=== PATIENT | female | born 1980 | race African-American/Black ===

== ENCOUNTER 2017-02-17 18:16 | Emergency (ER) | payer MEDICAID ==
--- NOTE | 2017-02-17 19:21 | ER Document Report ---
ED GI/ - General Chief Complaint: Vag Bleeding, +preg <12wks Stated Complaint: VAGINAL BLEEDING Time Seen by Provider: 02/17/17 19:10 Mode of Arrival: Ambulatory Information source: Patient Notes: Patient states that she is currently but unsure how far along she may be. Last menstrual period was December 04. Patient states she has had occasional spotting from time to time but noticed some brown bloody discharge today that was a small amount. Patient denies any pelvic pain or urinary symptoms. Patient [facility] but has not otherwise had any care or ultrasound to confirm the . TRAVEL OUTSIDE OF THE [place] IN LAST 30 DAYS: No - HPI Patient complains to provider of: Vaginal bleeding. No: Abdominal pain, Vaginal discharge Onset: This morning Timing/Duration: Waxing and waning Quality of pain: No pain Pain Level: Denies Vaginal bleeding (Compared to normal period): Spotting, Dark brown Associated symptoms: denies: Diarrhea, Dysuria, Fever, Nausea, Urinary hesitancy , Urinary frequency, Urinary retention, Urinary urgency, Vomiting Exacerbated by: Denies Relieved by: Denies Similar symptoms previously: No Recently seen / treated by doctor: Yes - Related Data Allergies/Adverse Reactions: No Known Allergies Allergy (Verified 02/17/17 18:40) Past Medical History - General Information source: Patient Last Menstrual Period: 12/04/2016 - Social History Smoking Status: Never Smoker Frequency of alcohol use: None Drug Abuse: None Occupation: retail Family History: Reviewed & Not Pertinent Patient has suicidal ideation: No Patient has homicidal ideation: No - Medical History Medical History: Negative Renal/ Medical History: Denies: Hx Peritoneal Dialysis Surgical Hx: Negative - Immunizations Hx Diphtheria, Pertussis, Tetanus Vaccination: Yes Review of Systems - Review of Systems Constitutional: No symptoms reported. denies: Fever, Recent illness EENT: No symptoms reported Cardiovascular: No symptoms reported. denies: Chest pain Respiratory: No symptoms reported. denies: Cough, Short of breath Gastrointestinal: No symptoms reported. denies: Abdominal pain, Nausea, Vomiting Genitourinary: No symptoms reported. denies: Dysuria, Frequency Female Genitourinary: , Vaginal bleeding. denies: Vaginal discharge Musculoskeletal: No symptoms reported. denies: Back pain Skin: No symptoms reported Hematologic/Lymphatic: No symptoms reported Neurological/Psychological: No symptoms reported Physical Exam - Vital signs Vitals: Temp Pulse Resp BP Pulse Ox 98.1 F 82 22 H 134/80 H 100 02/17/17 18:40 02/17/17 18:40 02/17/17 18:40 02/17/17 18:40 02/17/17 18:40 - General General appearance: Appears well, Alert In distress: None - HEENT Head: Normocephalic, Atraumatic Eyes: Normal Nasal: Normal Mouth/Lips: Normal Mucous membranes: Normal Neck: Normal, Supple. No: Lymphadenopathy - Respiratory Respiratory status: No respiratory distress Chest status: Nontender Breath sounds: Normal. No: Rales, Rhonchi, Stridor, Wheezing Chest palpation: Normal - Cardiovascular Rhythm: Regular Heart sounds: S1 appreciated, S2 appreciated Murmur: No - Abdominal Inspection: Gravid female Distension: No distension Bowel sounds: Normal Tenderness: Nontender Organomegaly: No organomegaly - Back Back: Normal, Nontender. No: CVA tenderness - Extremities General upper extremity: Normal inspection, Normal strength General lower extremity: Normal inspection, Normal strength - Neurological Neuro grossly intact: Yes Cognition: Normal [place] Coma Scale Eye Opening: Spontaneous [place] Coma Scale Verbal: Oriented [place] Coma Scale Motor: Obeys Commands Kayla Coma Scale Total: 15 - Psychological Associated symptoms: Normal affect, Normal mood - Skin Skin Temperature: Warm Skin Moisture: Dry Skin Color: Normal Course - Vital Signs Vital signs: Temp Pulse Resp BP Pulse Ox 98.5 F 78 16 114/78 98 02/17/17 22:47 02/17/17 22:47 02/17/17 22:47 02/17/17 22:47 02/17/17 22:47 - Laboratory Result Diagrams: 02/17/17 20:30 Laboratory results interpreted by me: 02/17/17 02/17/17 20:30 20:30 RDW 16.0 H Beta HCG, Quant 381676.00 H Labs- Entire Visit 02/17/17 02/17/17 02/17/17 20:30 20:30 20:30 WBC 7.4 RBC 5.13 Hgb 14.0 Hct 43.1 MCV 84 MCH 27.2 MCHC 32.4 RDW 16.0 H Plt Count 196 Seg Neutrophils % 68.4 Lymphocytes % 22.3 Monocytes % 7.3 Eosinophils % 1.4 Basophils % 0.6 Absolute Neutrophils 5.0 Absolute Lymphocytes 1.6 Absolute Monocytes 0.5 Absolute Eosinophils 0.1 Absolute Basophils 0.0 Beta HCG, Quant 113268.00 H Total Beta HCG POSITIVE Urine Color Urine Appearance Urine pH Ur Specific [place] Urine Protein Urine Glucose (UA) Urine Ketones Urine Blood Urine Nitrite Urine Bilirubin Urine Urobilinogen Ur Leukocyte Esterase Urine WBC (Auto) Squamous Epi Cells Auto Urine Ascorbic Acid Epi Cells (Wet Prep) Bacteria (Wet Prep) Trichomonas (Wet Prep) Vaginal WBC Vaginal RBC Vaginal Yeast Blood Type A POSITIVE Rhogam Indicated RHOGAM NOT INDICATED 02/17/17 02/17/17 20:35 21:30 WBC RBC Hgb Hct MCV MCH MCHC RDW Plt Count Seg Neutrophils % Lymphocytes % Monocytes % Eosinophils % Basophils % Absolute Neutrophils Absolute Lymphocytes Absolute Monocytes Absolute Eosinophils Absolute Basophils Beta HCG, Quant Total Beta HCG Urine Color STRAW Urine Appearance CLEAR Urine pH 6.0 Ur Specific [place] 1.004 Urine Protein NEGATIVE Urine Glucose (UA) NEGATIVE Urine Ketones NEGATIVE Urine Blood NEGATIVE Urine Nitrite NEGATIVE Urine Bilirubin NEGATIVE Urine Urobilinogen NEGATIVE Ur Leukocyte Esterase NEGATIVE Urine WBC (Auto) 0 Squamous Epi Cells Auto <1 Urine Ascorbic Acid NEGATIVE Epi Cells (Wet Prep) 3+ EPITHELIALS SEEN Bacteria (Wet Prep) 3+ BACTERIA SEEN Trichomonas (Wet Prep) NO TRICHOMONAS SEEN Vaginal WBC FEW WBCS SEEN Vaginal RBC 1+ RBCS SEEN Vaginal Yeast NO YEAST SEEN Blood Type Rhogam Indicated 02/18/17 07:38 - Diagnostic Test Radiology reviewed: Reports reviewed Discharge - Discharge Clinical Impression: Vaginal spotting, Intrauterine , Bacterial vaginosis Condition: Stable Disposition: HOME, SELF-CARE Instructions: Bleeding During Early ([facility]), Vaginosis, Bacterial ([facility]) Additional Instructions: Return immediately for any new or worsening symptoms Followup with your primary care provider, call tomorrow to make a followup appointment Follow-up with your DIRECTOR OF ENVIRONMENTAL SERVICES provider for recheck. Pelvic rest until you are cleared by your plant accountant Prescriptions: Metronidazole [Flagyl 500 mg Tablet] 500 mg PO BID #14 tablet Referrals: TILA QUEEN MD [Primary Care Provider] - Follow up as needed [facility] [NO LOCAL MD] - Follow up tomorrow
[2017-02-17 20:38] LABS: ABSOLUTE EOSINOPHILS # (AUTO) 0.1 10^3/uL (0.0-0.6); ABSOLUTE LYMPHOCYTES (AUTO) 1.6 10^3/uL (0.5-4.7); ABSOLUTE MONOCYTES (AUTO) 0.5 10^3/uL (0.1-1.4); BASOPHILS % (AUTO) 0.6 % (0-2); EOSINOPHILS % (AUTO) 1.4 % (0-6); HEMATOCRIT 43.1 % (36.0-47.0); HGB HCT DIFFERENCE -1.1; LYMPHOCYTES % (AUTO) 22.3 % (13-45); MEAN CORPUSCULAR HEMOGLOBIN 27.2 pg (27.0-33.4); MEAN CORPUSCULAR HGB CONC 32.4 g/dL (32.0-36.0); MEAN CORPUSCULAR VOLUME 84 fl (80-97); MONOCYTES % (AUTO) 7.3 % (3-13); RED BLOOD COUNT 5.13 10^6/uL (3.72-5.28); SEGMENTED NEUTROPHILS % (AUTO) 68.4 % (42-78); WHITE BLOOD COUNT 7.4 10^3/uL (4.0-10.5)
[2017-02-17 20:50] LABS: APPEARANCE,URINE CLEAR; BILIRUBIN,URINE NEGATIVE (NEGATIVE); GLUCOSE, URINE NEGATIVE (NEGATIVE); KETONES,URINE NEGATIVE (NEGATIVE); LEUKOCYTE ESTERASE,URINE NEGATIVE (NEGATIVE); NITRITE,URINE NEGATIVE (NEGATIVE); PROTEIN,URINE NEGATIVE (NEGATIVE); URINE SPECIFIC GRAVITY 1.004; UROBILINOGEN,URINE NEGATIVE mg/dL (<2.0)
--- NOTE | 2017-02-17 21:21 | RADIOLOGY REPORT (SQ) ---
EXAM DESCRIPTION: U/S [id number] TRNABD 1GES W/ODOP COMPLETED DATE/TIME: 02/17/2017 9:04 pm REASON FOR STUDY: vag bleeding COMPARISON: None. TECHNIQUE: Transabdominal static and realtime grayscale images acquired of the pelvis. Additional se lected spectral and color Doppler images recorded. All images stored on PACs. bHCG: Pending. LIMITATIONS: None. FINDINGS: FETUS: Living intrauterine . EGA: 11 weeks, 4 days JEROME: 09/04/2017 FHR: 165 beats per minute. SUBCHORIONIC BLEED: No SIZE OF BLEED: Not applicable. UTERUS: No masses. No anomalies. CERVICAL LENGTH: 4.4 cm Closed. RIGHT ADNEXA: Ovary not identified. No adnexal free fluid. No adnexal masses. LEFT ADNEXA: Ovary not identified. No adnexal free fluid. No adnexal masses. FREE FLUID: None. OTHER: No other significant finding. IMPRESSION: LIVING INTRAUTERINE . EGA 11 weeks, 4 days Trimester of : First - 0 to 13 weeks. TECHNICAL DOCUMENTATION: JOB ID: [id number]- All Rights Reserved
[2017-02-17] MEDS ORDERED: METRONIDAZOLE 500 MG TABLET PO ONE (22:34)
[2017-02-17 23:10] LABS: CHLAM PCR NOT DETECTED (NOT DETECT)
[2017-02-17 23:23] VITALS: BP 114/78
== END 2017-02-17 23:10 | disposition home or self-care (01) ==
LOC: ER 18:16
DX: O26.851 Spotting complicating pregnancy, first trimester (principal); O23.591 Infection of other part of genital tract in pregnancy, first trimester; B96.89 Other specified bacterial agents as the cause of diseases classified elsewhere; Z3A.10 10 weeks gestation of pregnancy
CPT/HCPCS: 99284; 86900; 86901; 36415; 87210; 84702; 85025; 81001; 87491; 87591; 76801; J3490

== ENCOUNTER 2017-05-06 13:17 | Outpatient (CLI) | payer MEDICAID ==
[2017-05-06 14:28] LABS: APPEARANCE,URINE SLIGHTLY-CLOUDY; BILIRUBIN,URINE NEGATIVE (NEGATIVE); GLUCOSE, URINE NEGATIVE (NEGATIVE); KETONES,URINE NEGATIVE (NEGATIVE); LEUKOCYTE ESTERASE,URINE NEGATIVE (NEGATIVE); NITRITE,URINE NEGATIVE (NEGATIVE); PROTEIN,URINE NEGATIVE (NEGATIVE); URINE SPECIFIC GRAVITY 1.018; UROBILINOGEN,URINE NEGATIVE mg/dL (<2.0)
[2017-05-06 14:45] LABS: URINE BARBITURATES SCREEN NEGATIVE; URINE METHADONE SCREEN NEGATIVE; URINE OPIATES LOW NEGATIVE; URINE PHENCYCLIDINE SCREEN NEGATIVE
== END 2017-05-06 14:19 | disposition home or self-care (01) ==
LOC: LC 13:17
PROVIDERS: ATTEND Obstetrics & Gynecology
PROC: 4A1HXCZ Monitoring of Products of Conception, Cardiac Rate, External Approach (ICD-10-PCS; principal; 2017-05-06)
DX: O36.8120 Decreased fetal movements, second trimester, not applicable or unspecified (principal); O09.522 Supervision of elderly multigravida, second trimester; Z3A.21 21 weeks gestation of pregnancy
CPT/HCPCS: 80307; 81001

== ENCOUNTER 2017-08-27 11:32 | Outpatient (CLI) | payer MEDICAID | END 2017-08-27 12:34 | disposition home or self-care (01) | LOC: LC 11:32 | PROVIDERS: ATTEND Obstetrics & Gynecology | PROC: 4A1HXCZ Monitoring of Products of Conception, Cardiac Rate, External Approach (ICD-10-PCS; principal; 2017-08-27) | DX: O47.1 False labor at or after 37 completed weeks of gestation (principal); Z3A.38 38 weeks gestation of pregnancy | CPT/HCPCS: 59025 ==

== ENCOUNTER 2017-09-05 19:31 | Outpatient (CLI) | payer MEDICAID ==
--- NOTE | 2017-09-05 19:38 | Non Stress Test Report ---
Non Stress Test Datetime Report Generated by CPN: 09/05/2017 19:38 DEMOGRAPHIC EGA NST: 38.0 INDICATION Indication for Study: Ordered by Provider VITAL SIGNS Temperature - NST: 97.8 Pulse - NST: 82 RESP - NST: 18 NBPSYS NST: 107 NBPDIA NST: 57 MONITORING Monitor Explained: Monitor Explained; Test Explained; Patient Verbalized Understanding Time on Monitor: 08/27/2017 11:35 Time off Monitor: 08/27/2017 12:32 NST Duration: 57 NST INTERVENTIONS NST Interventions: PO Hydration; Reposition Patient; Vibroacoustic Stim Physician Notified NST: Dr Lee BABY A: [id number] BABY A Movement : Present Contraction Frequency : none FHR Baseline : 135 Accelerations : 15X15 Decelerations : None Variability : Moderate 6-25bpm NST Review: Meets Criteria for Reactive NST NST Review and Verified By : Jo Anand RNC NST Results: Reactive NST REPORT Report Trigger: Send Report
[2017-09-05 20:04] LABS: APPEARANCE,URINE CLEAR; BILIRUBIN,URINE NEGATIVE (NEGATIVE); COLOR,URINE STRAW; GLUCOSE, URINE NEGATIVE (NEGATIVE); KETONES,URINE NEGATIVE (NEGATIVE); LEUKOCYTE ESTERASE,URINE NEGATIVE (NEGATIVE); NITRITE,URINE NEGATIVE (NEGATIVE); PROTEIN,URINE NEGATIVE (NEGATIVE); URINE SPECIFIC GRAVITY 1.004; UROBILINOGEN,URINE NEGATIVE mg/dL (<2.0)
[2017-09-05 20:26] LABS: URINE AMPHETAMINES SCREEN NEGATIVE; URINE BARBITURATES SCREEN NEGATIVE; URINE BENZODIAZEPINES SCREEN NEGATIVE; URINE COCAINE SCREEN NEGATIVE; URINE MARIJUANA (THC) SCREEN NEGATIVE; URINE METHADONE SCREEN NEGATIVE; URINE PHENCYCLIDINE SCREEN NEGATIVE
--- NOTE | 2017-09-05 21:28 | Non Stress Test Report ---
Non Stress Test Datetime Report Generated by CPN: 09/05/2017 21:28 DEMOGRAPHIC EGA NST: 39.2 INDICATION Indication for Study: Ordered by Provider; Other Indication for Study (NST) Other: Contractions MONITORING Monitor Explained: Monitor Explained; Test Explained; Patient Verbalized Understanding Time on Monitor: 09/05/2017 19:51 Time off Monitor: 09/05/2017 21:05 NST Duration: 74 NST INTERVENTIONS NST Interventions: PO Hydration; Reposition Patient Physician Notified NST: Dr. Werner BABY A Movement : Present Contraction Frequency : 2-5 FHR Baseline : 135 Accelerations : 15X15 Decelerations : None Variability : Moderate 6-25bpm NST Review: Meets Criteria for Reactive NST NST Review and Verified By : Jo ModiLeyda RN NST REPORT Report Trigger: Send Report
== END 2017-09-05 21:18 | disposition home or self-care (01) ==
LOC: LC 19:31
PROVIDERS: ATTEND Obstetrics & Gynecology Gynecology
PROC: 4A1HXCZ Monitoring of Products of Conception, Cardiac Rate, External Approach (ICD-10-PCS; principal; 2017-09-05)
DX: O47.1 False labor at or after 37 completed weeks of gestation (principal); Z3A.39 39 weeks gestation of pregnancy
CPT/HCPCS: 80307; 81005

== ENCOUNTER 2017-09-13 18:30 | Inpatient (IN) | payer MEDICAID ==
[2017-09-13] MEDS ORDERED: RINGERS SOLUTION,LACTATED 1,000 ML IV PRN (18:36)
[2017-09-13] MEDS ORDERED: RINGERS SOLUTION,LACTATED 300 ML IV ONE (18:36)
[2017-09-13] MEDS ORDERED: DINOPROSTONE 10 MG VAGINAL INSERT.SR PV PRN (18:36)
[2017-09-13 19:14] LABS: APPEARANCE,URINE SLIGHTLY-CLOUDY; BILIRUBIN,URINE NEGATIVE (NEGATIVE); COLOR,URINE YELLOW; GLUCOSE, URINE NEGATIVE (NEGATIVE); KETONES,URINE NEGATIVE (NEGATIVE); LEUKOCYTE ESTERASE,URINE NEGATIVE (NEGATIVE); NITRITE,URINE NEGATIVE (NEGATIVE); PROTEIN,URINE NEGATIVE (NEGATIVE); URINE SPECIFIC GRAVITY 1.017; UROBILINOGEN,URINE NEGATIVE mg/dL (<2.0)
[2017-09-13 19:34] LABS: ABSOLUTE EOSINOPHILS # (AUTO) 0.1 10^3/uL (0.0-0.6); ABSOLUTE LYMPHOCYTES (AUTO) 1.6 10^3/uL (0.5-4.7); ABSOLUTE MONOCYTES (AUTO) 0.6 10^3/uL (0.1-1.4); ABSOLUTE NEUT (AUTO) 4.4 10^3/uL (1.7-8.2); BASOPHILS % (AUTO) 0.5 % (0-2); EOSINOPHILS % (AUTO) 1.2 % (0-6); HEMATOCRIT 40.5 % (36.0-47.0); HEMOGLOBIN 13.7 g/dL (12.0-15.5); LYMPHOCYTES % (AUTO) 23.5 % (13-45); MEAN CORPUSCULAR HGB CONC 33.7 g/dL (32.0-36.0); MEAN CORPUSCULAR VOLUME 86 fl (80-97); MONOCYTES % (AUTO) 8.9 % (3-13); PLATELET COUNT 167 10^3/uL (150-450); RED BLOOD COUNT 4.71 10^6/uL (3.72-5.28); RED CELL DISTRIBUTION WIDTH 15.7 % (11.5-14.0); SEGMENTED NEUTROPHILS % (AUTO) 65.9 % (42-78); TOTAL CELLS COUNTED % (AUTO) 100 %; WHITE BLOOD COUNT 6.7 10^3/uL (4.0-10.5)
[2017-09-13 19:48] LABS: URINE AMPHETAMINES SCREEN NEGATIVE; URINE BARBITURATES SCREEN NEGATIVE; URINE BENZODIAZEPINES SCREEN NEGATIVE; URINE COCAINE SCREEN NEGATIVE; URINE MARIJUANA (THC) SCREEN NEGATIVE; URINE METHADONE SCREEN NEGATIVE; URINE PHENCYCLIDINE SCREEN NEGATIVE
[2017-09-13] MEDS ORDERED: DINOPROSTONE 10 MG VAGINAL INSERT.SR ONE (21:06)
[2017-09-14] MEDS ORDERED: PENICILLIN G POTASSIUM 5,000,000 UNIT in DEXTROSE 5%-WATER 100 ML IV ONE (08:00)
[2017-09-14] MEDS ORDERED: PROMETHAZINE HCL INJ 25 MG/1 ML VIAL ONE (10:45)
[2017-09-14] MEDS ORDERED: NALBUPHINE HCL INJ 10 MG/1 ML AMPULE ONE (10:45)
[2017-09-14] MEDS ORDERED: OXYTOCIN/NORMAL SALINE 20 UNIT/1,000 ML RTUINJ ONE (10:46)
[2017-09-14] MEDS ORDERED: PENICILLIN G-K 5 MILLION UNIT VIAL ONE (11:10)
[2017-09-14] MEDS ORDERED: PENICILLIN G POTASSIUM 2,500,000 UNIT in DEXTROSE 5%-WATER 50 ML IV SCH (12:00)
[2017-09-14] MEDS ORDERED: LIDOCAINE 1% INJ-PF (10 MG/ML) 30 ML SDV ONE (12:09)
[2017-09-14] MEDS ORDERED: MISOPROSTOL 0.2 MG TABLET ONE (12:09)
--- NOTE | 2017-09-14 14:39 | Warning Signs in Babies ---
VOD Warning Signs Datetime Report Generated by [facility]: 09/14/2017 14:39 VOD#608 -Warning Signs in Babies: Viewed with Parent(s)/Family (05/06/2017 13:26:Milena Ayala RN)
--- NOTE | 2017-09-14 14:39 | Delivery Summary ---
Del Sum A-C Datetime Report Generated by CPN: 09/14/2017 14:39 DELIVERY PERSONNEL DELIVERY PERSONNEL: [id number] Delivery Doctor:: Mell Robbins MD Nurse Template Reproduction Technician Certified:: Whitley Dean CNM Labor and Delivery Nurse:: Milena Ayala RNship boss Nurse:: LAWRENCE [place] Account Executive/CELL BUILDER: Angelo Silveira CST Territory Account Executive/CELL BUILDER: Ann Triplett CNA II Additional Personnel: : Rut Jane RN MATERNAL INFORMATION Delivery Anesthesia: None Medications After Delivery: Pitocin Bolus-Please Comment; Other-Please Comment Meds After Delivery Comment: Pitocin 20 units in 1000 ml nss open for bolus, Cytotec 1000 mcg placed rectally per provider for prophylactic pp hemorrhage prevention Estimated Blood Loss (ml): 400 Maternal Complications: Precipitous Labor (<3hrs) Provider Comments: SVDVF, infant vigorous to mothers abd. Cord clamped x 2 cut per FOB, 3vc. Placenta partially and bleeding, manually removed with trailing membranes. Uterus firmed immediately and then began to bleed again after finishing sutures. Manual exploration done, removed some clots and possibly more membranes. EBL 400, Apgars 8,9 1*perineal, 1* rt labial, 1* periclitoral Mother and stable LABOR SUMMARY EDC: 09/10/2017 00:00 No. Babies in Womb: 1 Attempted: No Labor Anesthesia: IV Sedation LABOR INFORMATION Reason for Induction: Other Reason for Induction- Other: elective Onset of Labor: 09/14/2017 10:55 Complete Dilatation: 09/14/2017 12:00 Cervical Ripening Agents: Cervidil Oxytocin: Induction Group B Beta Strep: Positive Antibiotics # of Doses: 1 Antibiotics Time of Last Dose: 1115 Name of Antibiotic Given: Penicillin Steroids Given: None Reason Steroids Not Administered: Not Applicable Other Reason Not Administered: n/a MEMBRANES Membranes Rupture Method: Spontaneous Rupture of Membranes: 09/14/2017 11:55 Length of Rupture (hr): 0.37 Amniotic Fluid Color: Clear Amniotic Fluid Amount: Moderate Amniotic Fluid Odor: Normal STAGES OF LABOR Stage 1 hr: 1 Stage 1 min: 5 Stage 2 hr: 0 Stage 2 min: 17 Stage 3 hr: 0 Stage 3 min: 11 Total Time in Labor hr: 1 Total Time in Labor min: 33 VAGINAL DELIVERY Episiotomy: None Laceration #1: Perineal Laceration Extension #1: First Degree Other Laceration: right labial and 1st degree perineal Laceration Repair: Yes Laceration Repair Note: 1 interrupted stitch perineal rt labial 2 stitches 3.0 chromic sutures Sponge Count Correct: N/A Sharps Count Correct: N/A CSECTION DELIVERY Primary Indication: N/A Secondary Indication: N/A CSection Incidence: N/A Labor: N/A Elective: N/A CSection Incision: N/A BABY A INFORMATION Delivery Date/Time: 09/14/2017 12:17 Method of Delivery: Vaginal Born in Route : No : N/A Forceps: N/A Vacuum Extraction: N/A Shoulder Dystocia : Yes PRESENTATION/POSITION BABY A Presentation: Cephalic Cephalic Presentation: Vertex Vertex Position: Right Occipital Anterior Breech Presentation: N/A PLACENTA INFORMATION BABY A Placenta Delivery Time : 09/14/2017 12:28 Placenta Method of Delivery: Spontaneous Placenta Status: Delivered SCORES BABY A Heart Rate 1 min: >100 bpm Resp Effort 1 min: Good Cry Reflex Irritability 1 min: Cough or Sneeze or Pulls Away Muscle Tone 1 min: Active Motion Color 1 min: Body [place], Extremities Blue Resuscitation Effort 1 min: Tactile Stimulation SCORE 1 MIN: 9 Heart Rate 5 min: >100 bpm Resp Effort 5 min: Good Cry Reflex Irritability 5 min: Cough or Sneeze or Pulls Away Muscle Tone 5 min: Active Motion Color 5 min: Body [place], Extremities Blue Resuscitation Effort 5 min: N/A SCORE 5 MIN: 9 Resuscitation Effort 10 min: N/A INFANT INFORMATION BABY A Gestational Age at Delivery: 40.4 Gestational Status: Full Term- 39- 40.6 Weeks Outcome : Liveborn Infant Condition : Stable Infant Sex: Female IDENTIFICATION BABY A Infant Verification Date/Time: 09/14/2017 12:17 ID Band Number: [id number] Mother's Name Verified: Yes RN Verifying : Jayna Camp RNC Additional Verifying Personnel: Isabel Garsia RN WEIGHT/LENGTH BABY A Infant Birthweight (gm): 3610 Infant Weight (lb): 7 Infant Weight (oz): 15 Length (in): 20.50 Infant Length (cm): 52.07 CORD INFORMATION BABY A No. Cord Vessels: 3 Nuchal Cord : N/A Cord Blood Taken: Yes-For Storage (Mom's Blood type +) Suction: None ASSESSMENT BABY A Complications: None Physical Findings at Delivery: Within Normal Limits Infant Respirations: Appears Normal Skin to Skin: Yes Skin to Skin Time (min): 15 Wireless Communications Engineer/ALS Called : No Transferred To: Remains with Mother SIGNATURES Assignment: Mell Robbins MD Signature: with User ID: [email or web address] : with User ID: [email or web address] : I was personally available for consultation and serving as supervising physician for the MLP.
[2017-09-14] MEDS ORDERED: ZOLPIDEM TARTRATE 5 MG TABLET PO PRN (15:01)
[2017-09-14] MEDS ORDERED: DIBUCAINE 1% OINTMENT 28 GM TP PRN (15:01)
[2017-09-14] MEDS ORDERED: DIPH/PERTUSS(ACELL)/TETANUS VAC/PF 0.5 ML SYR (>=10YO) IM PRN (15:01)
[2017-09-14] MEDS ORDERED: BENZOCAINE/MENTHOL AEROSOL SPRAY 56 ML TOP PRN (15:01)
[2017-09-14] MEDS ORDERED: ACETAMINOPHEN WITH CODEINE #3 TABLET PO PRN ×2 (15:01)
[2017-09-14] MEDS ORDERED: MEASLES,MUMPS&RUBELLA VACC/PF 0.5 ML VIAL SUBCUT PRN (15:01)
--- NOTE | 2017-09-14 15:39 | Admission Physical ---
Datetime Report Generated by CPN: 09/14/2017 15:38 CURRENT ADMISSION Chief Complaint: Scheduled Induction of Labor Indication for Induction: Post Dates Indication for Induction: No Active Labor; Intact Membranes; Induction of Labor Admit Plan: Admit to Unit; Initiate Labor Induction Protocol ALLERGIES Medication Allergies: No Medication Allergies: No Known Allergies (09/05/2017) Medication Allergies: No Known Allergies (02/17/2017) Latex: No Latex Allergies Food Allergies: NKA Environmental Allergies: NKA OBSTETRICAL HISTORY EDC: 09/10/2017 00:00 : 6 Para: 3 Term: 3 : 0 SAB: 2 IAB: 0 Ectopic: 0 Livin Cesareans: 0 VBACs: 3 Multiple Births: 0 Gestational Diabetes: No Rh Sensitization: No Incompetent Cervix: No VU: No Infertility: No ART Treatment: No Uterine Anomaly: No IUGR: No Hx Previous C/S: No Macrosomia: No Hx Loss/Stillborn: No PIH: No Hx : No Placenta Previa/Abruption: No Depression/PP Depression: No PTL/PROM: No Post Hemorrhage: No Current Procedures: Ultrasound Obstetrical History Comments: G1 female 6lbs 8oz at 40 weeks (1999) G2 EAB at 8weeks (2000) G3 female 6lbs 7oz at 39 weeks (2002) G4 EAB at 16 weeks (2003) G5 male 7lbs 8oz at 39 weeks (2004) G6- current SEE RECORDS Alcohol: No Marijuana : No Cocaine: No Other Illicit Drugs: No Cigarettes: Never Smoker. 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 Surgery: No Heart Disease: No Hosp/Surgery: No Autoimmune Disorder: No Anesthetic Complications: No Kidney Disease: No Abnormal Pap Smear: Yes Neuro/Epilepsy: No Psychiatric Disorders: No Other Medical Diseases: No Hepatitis/Liver Disease: No Significant Family History: No Varicosities/Phlebitis: No Trauma/Violence : No Thyroid Dysfunction: No Medical History Comments: Abnormal Pap - Pt states that it was a "long, long time ago" INFECTIOUS HISTORY Gonorrhea: No Genital Herpes: Yes Chlamydia: No Tuberculosis: No Syphilis: No Hepatitis: No HIV/AIDS Exposure: No Rash or Viral Illness: No HPV: No Infectious History Comments: last Outbreak in 2015 PHYSICAL EXAM General: Normal HEENT: Normal Neurologic: Normal Thyroid: Normal Heart: Normal Lungs: Normal Breast: Deferred Back: Normal Abdomen: Normal Genitourinary Exam: Normal Extremities: Normal DTRs: Normal Pelvic Type: Adequate Vital Signs: Reviewed VAGINAL EXAM Dilatation: 1 Effacement: 0 Station: -2 MEMBRANES Pooling: Negative Membranes: Intact FETUS A EGA: 40.3 FHR- Baseline: 140 Variability: Moderate 6-25bpm Decelerations: None FHR Category: Category I Presentation: Vertex Admit Comment: efw 8-9 lbs PLANS FOR LABOR AND DELIVERY Labor and Delivery: None Pain Management: Epidural Feeding Preference: Breast Benefit of Breast Feed Discussed: Yes Circumcision: N/A INFORMED CONSENT Signature: with User ID: [email or web address]
[2017-09-14] MEDS: FERROUS SULFATE 325 MG TABLET PO SCH (18:50)
[2017-09-14] MEDS: DOCUSATE SODIUM 100 MG CAPSULE PO SCH (18:51)
[2017-09-14] MEDS: IBUPROFEN 800 MG TABLET PO SCH (21:15)
[2017-09-15] MEDS: IBUPROFEN 800 MG TABLET PO SCH ×3 (05:49→22:01)
[2017-09-15 08:18] LABS: MEAN CORPUSCULAR HEMOGLOBIN 28.7 pg (27.0-33.4); MEAN CORPUSCULAR HGB CONC 33.1 g/dL (32.0-36.0); MEAN CORPUSCULAR VOLUME 87 fl (80-97); PLATELET COUNT 156 10^3/uL (150-450); RED BLOOD COUNT 4.04 10^6/uL (3.72-5.28); RED CELL DISTRIBUTION WIDTH 15.4 % (11.5-14.0); WHITE BLOOD COUNT 9.1 10^3/uL (4.0-10.5)
[2017-09-15 08:19] LABS: HEMOGLOBIN 11.6 g/dL (12.0-15.5)
[2017-09-15] MEDS: PRENATAL VITAMIN W DHA CAPSULE PO SCH (10:08)
[2017-09-15] MEDS: FERROUS SULFATE 325 MG TABLET PO SCH ×2 (10:08→20:28)
[2017-09-15] MEDS: DOCUSATE SODIUM 100 MG CAPSULE PO SCH ×2 (10:09→20:28)
[2017-09-15] MEDS: SENNOSIDES/DOCUSATE 8.6-50 MG 1 EACH TABLET PO SCH (10:09)
--- NOTE | 2017-09-15 10:34 | PDOC PROGRESS REPORT ---
Subjective-OB Subjective: Post Delivery Day: 36 year old. Denies any needs at this time ff@u-1 mild lochia anticipate d/c in AM Physical Exam (OB) Vital Signs: Temp Pulse Resp BP Pulse Ox 98.2 F 83 16 108/54 L 98 09/15/17 07:59 09/15/17 07:59 09/15/17 07:59 09/15/17 07:59 09/15/17 07:59 Intake & Output 09/14/17 09/15/17 09/16/17 06:59 06:59 06:59 Intake Total 460 Balance 460 Weight 113.55 kg - PIH/Pre-Eclampsia DTR's: 2 + Clonus: Negative Headache: Absent Epigastric Pain: No Visual Changes: No - Lochia Lochia Amount: Scant < 10 ml Lochia Color: Rubra/Red - Abdomen Description: Soft, Round Hernia Present: No Fundal Description: Firm, Midline Fundal Height: u/u - u/2 Objective-Diagnostic Laboratory: 09/15/17 07:26 09/15/17 07:26 WBC 9.1 RBC 4.04 Hgb 11.6 L D Hct 35.0 L MCV 87 MCH 28.7 MCHC 33.1 RDW 15.4 H Plt Count 156
[2017-09-16] MEDS: IBUPROFEN 800 MG TABLET PO SCH (05:21)
[2017-09-16 08:37] VITALS: BP 122/78
[2017-09-16] MEDS: PRENATAL VITAMIN W DHA CAPSULE PO SCH (10:06)
[2017-09-16] MEDS: DOCUSATE SODIUM 100 MG CAPSULE PO SCH (10:06)
[2017-09-16] MEDS: FERROUS SULFATE 325 MG TABLET PO SCH (10:06)
[2017-09-16] MEDS: SENNOSIDES/DOCUSATE 8.6-50 MG 1 EACH TABLET PO SCH (10:06)
--- NOTE | 2017-09-16 10:10 | PDOC DISCHARGE SUMMARY ---
Final Diagnosis Discharge Date: 09/16/17 - Final Diagnosis (1) Vaginal delivery Is this a current diagnosis for this admission?: Yes Discharge Data - Discharge Medication Home Medications: Pnv No.95/Ferrous Fum/Folic AC [ Multivitamin Tablet] 1 tab PO DAILY Valacyclovir HCl [Valtrex] 1 tab PO DAILY 08/27/17 Intrapartum Procedure(s): Spontaneous Vaginal Delivery - Diagnosis Test Laboratory: Temp Pulse Resp BP Pulse Ox 98.4 F 85 16 122/78 96 09/16/17 07:34 09/16/17 07:34 09/16/17 07:34 09/16/17 07:34 09/16/17 07:34 09/13/17 09/13/17 09/15/17 18:53 19:21 07:26 RBC 4.71 4.04 Hgb 13.7 11.6 L D Hct 40.5 35.0 L Urine Opiates Screen NEGATIVE - Discharge information/Instructions Discharge Activity: Balance Activity w/Rest, Pelvic Rest Discharge Diet: Regular Disposition: HOME, SELF-CARE Follow up with: [facility] in: 4, Weeks
[2017-09-16] MEDS ORDERED: INFLUENZA ADLT QUAD (36MOS+) 2017-18 VAC 0.5 ML SYR IM PRN (10:52)
== END 2017-09-16 11:37 | disposition home or self-care (01) | DRG 775 ==
LOC: LR 18:30 → 2N 09-14 15:37
PROVIDERS: ADMIT Obstetrics & Gynecology; ATTEND Obstetrics & Gynecology
PROC: 4A1HXCZ Monitoring of Products of Conception, Cardiac Rate, External Approach (ICD-10-PCS; 2017-09-13)
PROC: 10E0XZZ Delivery of Products of Conception, External Approach (ICD-10-PCS; principal; 2017-09-14)
PROC: 0UQJXZZ Repair Clitoris, External Approach (ICD-10-PCS; 2017-09-14)
PROC: 0HQ9XZZ Repair Perineum Skin, External Approach (ICD-10-PCS; 2017-09-14)
DX: O48.0 Post-term pregnancy (principal); O62.3 Precipitate labor; O70.0 First degree perineal laceration during delivery; Z3A.40 40 weeks gestation of pregnancy; Z37.0 Single live birth
CPT/HCPCS: 36415; 80307; 81005; 85025; 85027; 86592; 86850; 86900; 86901; J2300; J2540; J2550; J2590; J3490

== ENCOUNTER 2019-10-02 07:13 | Emergency (ER) | payer BC, MEDICAID ==
[2019-10-02 08:50] LABS: ABSOLUTE EOSINOPHILS # (AUTO) 0.1 10^3/uL (0.0-0.6); ABSOLUTE LYMPHOCYTES (AUTO) 1.3 10^3/uL (0.5-4.7); ABSOLUTE MONOCYTES (AUTO) 0.4 10^3/uL (0.1-1.4); ABSOLUTE NEUT (AUTO) 2.5 10^3/uL (1.7-8.2); BASOPHILS % (AUTO) 0.9 % (0-2); EOSINOPHILS % (AUTO) 2.6 % (0-6); HEMATOCRIT 34.9 % (36.0-47.0); HEMOGLOBIN 10.6 g/dL (12.0-15.5); MEAN CORPUSCULAR HGB CONC 30.4 g/dL (32.0-36.0); MEAN CORPUSCULAR VOLUME 69 fl (80-97); MONOCYTES % (AUTO) 8.4 % (3-13); PLATELET COUNT 208 10^3/uL (150-450); RED BLOOD COUNT 5.04 10^6/uL (3.72-5.28); RED CELL DISTRIBUTION WIDTH 18.3 % (11.5-14.0); SEGMENTED NEUTROPHILS % (AUTO) 58.1 % (42-78); TOTAL CELLS COUNTED % (AUTO) 100 %; WHITE BLOOD COUNT 4.4 10^3/uL (4.0-10.5)
[2019-10-02 09:03] VITALS: BP 116/70
[2019-10-02 09:14] LABS: ALBUMIN 4.2 g/dL (3.5-5.0); ALKALINE PHOSPHATASE 78 U/L (38-126); ANION GAP 9 (5-19); ASPARTATE AMINO TRANSFERASE 23 U/L (14-36); BILIRUBIN,DIRECT 0.2 mg/dL (0.0-0.4); BILIRUBIN,TOTAL 0.4 mg/dL (0.2-1.3); BLOOD UREA NITROGEN 10 mg/dL (7-20); CALCIUM 9.1 mg/dL (8.4-10.2); CARBON DIOXIDE 30 mmol/L (22-30); CHLORIDE 103 mmol/L (98-107); CREATINE KINASE 103 U/L (30-135); GLUCOSE 76 mg/dL (75-110); POTASSIUM 4.1 mmol/L (3.6-5.0); TOTAL PROTEIN 8.2 g/dL (6.3-8.2)
[2019-10-02 09:26] LABS: CREATINE KINASE MB 0.26 ng/mL (<4.55)
[2019-10-02 09:27] LABS: TROPONIN I < 0.012 ng/mL
--- NOTE | 2019-10-02 12:47 | EKG REPORT ---
SEVERITY:- NORMAL ECG - SINUS RHYTHM : Confirmed by: Eddie Bliss MD 02-Oct-2019 12:46:52
--- NOTE | 2019-10-02 16:36 | ER Document Report ---
Entered by LATRICE MARION SCRIBE 10/02/19 0829 Acting as scribe for:LEXI NUNN MD ED ENT - General Chief Complaint: Dizziness Stated Complaint: DIZZINESS Time Seen by Provider: 10/02/19 08:18 Primary Care Provider: MARCELO EWING MD [ACTIVE STAFF] - Follow up as needed Information source: Patient Notes: 39 year old female presents to the ED with dizziness that started last night after cleaning with bleach. Patient stated that after cleaning, she began to have a headache. After a nap, patient says she woke up feeling dizzy at around 0430 this morning. Patient adds that her dizziness is exacerbated with head movement. Patient adds that her dizziness has gotten better, stating that she "is only a little dizzy now". TRAVEL OUTSIDE OF THE [place] IN LAST 30 DAYS: No - Related Data Allergies/Adverse Reactions: No Known Allergies Allergy (Verified 10/02/19 07:22) Past Medical History - General Information source: Patient - Social History Smoking Status: Never Smoker Cigarette use (# per day): No Chew tobacco use (# tins/day): No Frequency of alcohol use: None Drug Abuse: None Family History: Reviewed & Not Pertinent Patient has suicidal ideation: No Patient has homicidal ideation: No - Medical History Medical History: Negative Surgical Hx: Negative - Immunizations Hx Diphtheria, Pertussis, Tetanus Vaccination: Yes Review of Systems - Review of Systems Constitutional: No symptoms reported EENT: No symptoms reported Cardiovascular: See HPI, Dizziness Respiratory: No symptoms reported Gastrointestinal: No symptoms reported Genitourinary: No symptoms reported Female Genitourinary: No symptoms reported Musculoskeletal: No symptoms reported Skin: No symptoms reported Hematologic/Lymphatic: No symptoms reported Neurological/Psychological: See HPI, Headaches -: Yes All other systems reviewed and negative Physical Exam - Vital signs Vitals: Temp Pulse Resp BP Pulse Ox 98.5 F 75 16 139/73 H 100 10/02/19 07:19 10/02/19 07:19 10/02/19 07:19 10/02/19 07:19 10/02/19 07:19 - Notes Notes: Physical Exam: General: Alert, appears well. HEENT: Normocephalic. Atraumatic. PERRL. Extraocular movements intact. Oropharynx clear. Neck: Supple. Non-tender. Respiratory: No respiratory distress. Clear and equal breath sounds bilaterally. Cardiovascular: Regular rate and rhythm. Abdominal: Normal Inspection. Non-tender. No distension. Normal Bowel Sounds. Back: No gross abnormalities. Extremities: Moves all four extremities. Upper extremities: Normal inspection. Normal ROM. Lower extremities: Normal inspection. No edema. Normal ROM. Neurological: Normal cognition. AAOx4. Normal speech. Psychological: Normal affect. Normal Mood. Skin: Warm. Dry. Normal color. Course - Vital Signs Vital signs: Temp Pulse Resp BP Pulse Ox 98.0 F 73 14 116/70 100 10/02/19 09:02 10/02/19 09:02 10/02/19 09:02 10/02/19 09:02 10/02/19 09:02 - Laboratory Result Diagrams: 10/02/19 08:38 10/02/19 08:38 Laboratory results interpreted by me: 10/02/19 08:38 Hgb 10.6 L Hct 34.9 L MCV 69 L MCH 21.0 L MCHC 30.4 L RDW 18.3 H - EKG Interpretation by [place] EKG shows normal: Sinus rhythm, [place], Intervals, QRS Complexes, ST-T Waves Rate: Normal - 70 Rhythm: NSR Discharge - Discharge Clinical Impression: Vertigo Condition: Stable Disposition: HOME, SELF-CARE Additional Instructions: Vertigo: You have experienced an episode of vertigo -- a whirling dizziness which may be accompanied by nausea and vomiting or staggering. Vertigo is often caused by an irritation of the inner ear, in which case it is called labyrinthitis. It can also be a symptom of a degenerating inner ear, nerve damage, or brain injury. Your physician has evaluated you to determine whether any further testing is necessary. Vertigo is often treated with dramamine or meclizine. These medications are helpful, but stronger medication may be needed if you are vomiting. Rest in bed. You should not drive or operate machinery until completely better. It may take one to three weeks for recovery. If there are new symptoms, such as decreased hearing or vision, severe headache, weakness or faintness, or confusion, call the physician. Take medications as prescribed if you continue having the dizzy sensations. Follow-up with your primary care provider if not improving. RETURN TO THE EMERGENCY ROOM IF ANY NEW OR WORSENING SYMPTOMS. Prescriptions: Meclizine HCl [Antivert 25 mg Tablet] 25 mg PO TID PRN #25 tablet PRN Reason: Referrals: MARCELO EWING MD [ACTIVE STAFF] - Follow up as needed Scribe Attestation: 10/02/19 08:29 I personally performed the services described in the documentation, reviewed and edited the documentation which was dictated to the scribe in my presence, and it accurately records my words and actions. I personally performed the services described in the documentation, reviewed and edited the documentation which was dictated to the scribe in my presence, and it accurately records my words and actions.
== END 2019-10-02 09:03 | disposition home or self-care (01) ==
LOC: ER 07:13
DX: R42 Dizziness and giddiness (principal)
CPT/HCPCS: 36415; 80053; 82550; 82553; 84484; 85025; 93005; 93010; 99284